=== PATIENT | male | born 1940 | race Caucasian/White ===

== ENCOUNTER 2017-10-09 16:13 | Inpatient (IN) ==
[2017-10-09] MEDS ORDERED: Acetaminophen 325 MG TABLET PO PRN (17:16)
[2017-10-09] MEDS ORDERED: Ibuprofen 600 MG TABLET PO PRN (17:16)
[2017-10-09] MEDS: *HR* OxyCODONE Immed Rel 5 MG TABLET PO PRN (22:58)
[2017-10-10] MEDS: *HR* OxyCODONE Immed Rel 5 MG TABLET PO PRN ×2 (06:01→15:18)
[2017-10-10 07:05] LABS: Basophils # 0.1 K/mcL (0.0-0.2); Basophils % 0.7 %; Eosinophils # 0.3 K/mcL (0.0-0.6); Eosinophils % 3.1 %; Hematocrit 47.3 % (37.5-50.1); Hemoglobin 16.5 g/dL (12.9-16.9); Immature Granulocytes % 0.5 % (0-4); Lymphocytes # 1.9 K/mcL (0.6-4.6); Mean Corpuscular HGB Conc 34.9 g/dL (31.6-35.5); Mean Corpuscular Hemoglobin 31.1 pg (28.0-33.3); Mean Corpuscular Volume 89.1 fL (83.0-100.0); Mean Platelet Volume 10.6 fL (9.4-12.4); Neutrophils # 5.8 K/mcL (1.6-8.9); Platelet Count 219 K/mcL (140-400); Red Blood Count 5.31 M/mcL (4.19-5.50); Red Cell Distribution Width 12.8 % (11.5-14.5); Segmented Neutrophils % 63.7 %
[2017-10-10 07:29] LABS: INR 1.1; Prothrombin Time 11.9 Seconds (9.4-12.1)
[2017-10-10 07:32] LABS: Activated Partial Thrombo Time 31.3 Seconds (26.0-36.0)
[2017-10-10 07:34] LABS: BUN/Creatinine Ratio 21 (6-26); Blood Urea Nitrogen 25 mg/dL (8-23); Calcium 9.3 mg/dL (8.6-10.3); Carbon Dioxide 26 mEq/L (23-29); Chloride 101 mEq/L (98-107); Glucose 167 mg/dL (70-105); Osmolality,Calculated 288 (280-300); Potassium 3.7 mEq/L (3.5-5.1); Sodium 135 mEq/L (136-145); eGFR For African Americans > 60 (> 60); eGFR For Non-African Americans 60 (> 60)
[2017-10-10] MEDS: Aspirin Enteric Coated 81 MG Tablet PO SCH (08:03)
--- NOTE | 2017-10-10 16:22 | Internal Med History&Physical ---
Date of Encounter: 10/10/17 Time of Encounter: 15:50 Assessment and Plan (1) Cervical spinal stenosis Current visit: No Status: Chronic He will have PT and OT evaluations with ongoing intervention. Follow-up with surgeon as directed. Will give scheduled Tylenol and tramadol and prn oxycodone for pain control. (2) CKD (chronic kidney disease) stage 3, GFR 30-59 ml/min Current visit: Yes Status: Chronic Will discontinue ibuprofen and monitor renal indices. (3) Hypertension Current visit: Yes Status: Chronic Inadequately controlled without medication. Will start Cozaar Qualifiers: Hypertension type: essential hypertension Qualified Code(s): I10 - Essential (primary) hypertension Internal Medicine - H&P: HPI Chief complaint: Neck surgery Admitted From: Hospital to Hospital Transfer Plans for Post Hospital Care: Home History of present illness: Mr. Louise is a 77 year old male who underwent C4-7 laminectomy and posterior cervical fusion by Dr. Joseph on 10/06/2017. His postoperative course was unremarkable and he was discharged to [facility] swing bed for rehabilitation therapy prior to returning home. He reports there is still significant pain in his neck but no residual tingling in his arms as had been present preoperatively. He reports a previous neck surgery several years earlier. His orthopedic history is significant otherwise for left TKR and right ulnar nerve transposition. He denies gout. Past Med Surg Social Fam HX - Past Medical History Medical history: cancer, GERD, hypertension Psychiatric history: no psych history - Past Surgical History Surgical History: other - Social History Smoking Status: Former smoker Smokeless Tobacco Status: No Alcohol use: rarely Drug use: none - Family History Mother Hx Family Cancer: Yes Internal Medicine - H&P: Meds Aspirin [Adult Aspirin Regimen] 81 mg PO DAILY 10/06/17 [History] Esomeprazole Magnesium [Nexium] 40 mg PO DAILY 10/06/17 [History] Ibuprofen [Motrin] 600 mg PO TID PRN 10/06/17 [History] Acetaminophen [Tylenol] 650 mg PO Q6HR PRN tablet 10/08/17 [Rx] Cyclobenzaprine [Flexeril] 10 mg PO TID PRN tablet 10/08/17 [Rx] OxyCODONE Immed Rel [Roxicodone 5 MG] 5 mg PO Q6H PRN 7 Days #28 tablet [Rx] 3 Allergy/AdvReac Type Severity Reaction Status Date / Time Sulfa (Sulfonamide Allergy Hives Verified 10/06/17 06:54 Antibiotics) ciprofloxacin AdvReac See Verified 10/06/17 06:54 Comments metronidazole AdvReac See Verified 10/06/17 06:54 Comments Icwtosp-Wbo-Rph Reductase AdvReac See Verified 10/06/17 06:54 Inhibitor Comments [Statins] All Systems PM: A 10-system review of systems was performed and is negative for pertinent findings except as documented above in the HPI. Review of systems: Gen.: He states his weight has been stable the past few months Cardiovascular: He has history of hypertension but denies PA heart failure angina DVT or pulmonary embolus Respiratory: He smoked from age [age]. He denies chronic lung disease and does not use home oxygen GI: He has GERD. He denies disorders of his liver gallbladder or exocrine pancreas : He had prostate cancer diagnosed in 2001. He was treated with brachytherapy and is presumed cancer free. He has chronic kidney disease stage III. Neurologic: He denies large distribution strokes or seizures. He had right ulnar nerve transposition surgery as per history of present illness. Endocrine: Denies diabetes thyroid disease or hyperlipidemia Hematology/oncology: He denies blood disorders cancers or anemia Psychiatric: He denies anxiety depression or other mental health issues - Constitutional Vitals: Temp Pulse Resp BP Pulse Ox 97.8 F 81 22 155/97 93 10/10/17 15:12 10/10/17 15:12 10/10/17 15:12 10/10/17 15:12 10/10/17 15:12 Exam: Gen.: He is a well-developed well-nourished male who appears in no acute distress at present time HEENT: Head is atraumatic and normocephalic. Eyes: EOMI. There is no scleral icterus. Mouth: Mucosa is moist. Neck: His posterior neck has a surgical dressing in place which I did not remove. There is no thyromegaly or adenopathy noted. Heart: Regular without murmurs gallops or ectopics Lungs: No wheezes or crackles are heard. Abdomen: Soft and nontender. No masses or guarding are noted. Extremities: There is no cyanosis edema or clubbing noted. Dorsalis pedis and posttibial pulses are 1-2 over 2 bilaterally. Neurologic: Mental status: He is talkative and a good historian. Cranial nerves : Smile is symmetric. Forehead wrinkles bilaterally. Tongue protrudes midline. EOMI. Motor: There is no pronator drift. Cerebellar: Finger to nose is intact bilaterally. Skin: Warm and dry Internal Med - H&P Results - Labs CBC & Chem 7: 10/10/17 06:05 10/10/17 06:05 Labs: Short CBC 10/10/17 Range/Units 06:05 WBC 9.2 (4.3-11.1) K/mcL Hgb 16.5 (12.9-16.9) g/dL Hct 47.3 (37.5-50.1) % Plt Count 219 (140-400) K/mcL Neutrophils # 5.8 (1.6-8.9) K/mcL BMP 10/10/17 06:05 Sodium 135 L Potassium 3.7 Chloride 101 Carbon Dioxide 26 BUN 25 H Creatinine 1.19 Glucose 167 H Calcium 9.3 - VTE Documentation of Mechanical Device: Graduated compression elastic hosiery
[2017-10-10] MEDS: Acetaminophen 325 MG TABLET PO SCH (19:15)
[2017-10-10] MEDS: traMADol 50 MG TABLET PO SCH (19:15)
[2017-10-11] MEDS: traMADol 50 MG TABLET PO SCH ×4 (00:24→19:51)
[2017-10-11] MEDS: Acetaminophen 325 MG TABLET PO SCH ×4 (00:24→19:51)
[2017-10-11] MEDS: Aspirin Enteric Coated 81 MG Tablet PO SCH (08:19)
[2017-10-11] MEDS: *HR* OxyCODONE Immed Rel 5 MG TABLET PO PRN ×2 (08:23→14:44)
[2017-10-11] MEDS ORDERED: MOM Conc 10 ML UD.LIQ PO SCH (12:00)
--- NOTE | 2017-10-11 14:54 | Internal Med Progress Note ---
Date of Encounter: 10/11/17 Time of Encounter: 14:45 - Assessment and plan (1) Cervical spinal stenosis Current Visit: No Status: Chronic Assessment and plan: October 11. Status post C4-7 laminectomy and posterior cervical fusion. Continue analgesics and therapy. (2) CKD (chronic kidney disease) stage 3, GFR 30-59 ml/min Current Visit: Yes Status: Chronic Assessment and plan: October 11. Remain off ibuprofen and monitor renal indices. (3) Hypertension Current Visit: Yes Status: Chronic Assessment and plan: October 11. His reports he was taking 25 mg atenolol daily from her prescription supply prior to surgery. Will restart atenolol and continue Cozaar. Qualifiers: Hypertension type: essential hypertension Qualified Code(s): I10 - Essential (primary) hypertension - Subjective Interval history: October 11. He is having significant pain at this moment. He states it was less severe earlier in the day. - Constitutional Vitals: Temp Pulse Resp BP Pulse Ox 97.8 F 87 17 141/96 92 10/11/17 05:50 10/11/17 05:50 10/11/17 05:50 10/11/17 05:50 10/11/17 05:50 Exam: He is lying in bed and appears to be in significant pain with when sitting up. He is able to answer questions appropriately. I reviewed his medications and lab results. Internal Medicine: Result - Labs CBC & Chem 7: 10/10/17 06:05 10/10/17 06:05 - ABG Interpretation ABG results: PT/INR, D-dimer PT 11.9 Seconds (9.4-12.1) 10/10/17 06:05 - VTE Documentation of Mechanical Device: Graduated compression elastic hosiery Consult Discharge Plan - Plan Referrals: Shekhar Lemus DO [Primary Care Provider] - 1 week
[2017-10-12] MEDS: traMADol 50 MG TABLET PO SCH ×4 (05:21→17:14)
[2017-10-12] MEDS: Acetaminophen 325 MG TABLET PO SCH ×4 (05:21→17:13)
[2017-10-12] MEDS: *HR* OxyCODONE Immed Rel 5 MG TABLET PO PRN ×2 (05:23→20:38)
[2017-10-12] MEDS: Aspirin Enteric Coated 81 MG Tablet PO SCH (08:48)
[2017-10-13] MEDS: Acetaminophen 325 MG TABLET PO SCH ×4 (00:03→18:29)
[2017-10-13] MEDS: traMADol 50 MG TABLET PO SCH ×4 (00:04→18:30)
[2017-10-13] MEDS: *HR* OxyCODONE Immed Rel 5 MG TABLET PO PRN (08:02)
[2017-10-13] MEDS: Aspirin Enteric Coated 81 MG Tablet PO SCH (08:03)
[2017-10-13] MEDS: MOM Conc 10 ML UD.LIQ PO SCH (09:45)
--- NOTE | 2017-10-13 14:34 | Internal Med Progress Note ---
Date of Encounter: 10/13/17 Time of Encounter: 14:25 - Assessment and plan (1) Cervical spinal stenosis Current Visit: No Status: Chronic Assessment and plan: October 11. Status post C4-7 laminectomy and posterior cervical fusion. Continue analgesics and therapy. (2) CKD (chronic kidney disease) stage 3, GFR 30-59 ml/min Current Visit: Yes Status: Chronic Assessment and plan: October 11. Remain off ibuprofen and monitor renal indices. October 13. Will recheck labs in a.m. (3) Hypertension Current Visit: Yes Status: Chronic Assessment and plan: October 11. His reports he was taking 25 mg atenolol daily from her prescription supply prior to surgery. Will restart atenolol and continue Cozaar. October 13. Continue atenolol and Cozaar Qualifiers: Hypertension type: essential hypertension Qualified Code(s): I10 - Essential (primary) hypertension (4) Lymph node enlargement Current Visit: Yes Status: Acute Assessment and plan: October 13. Will check labs in a.m. and reassess in 1-2 days. - Subjective Interval history: October 11. He is having significant pain at this moment. He states it was less severe earlier in the day. October 13. His pain has minimally lessened. He reports feeling a sore "lump" in his right preauricular area. - Constitutional Vitals: Temp Pulse Resp BP Pulse Ox 98.2 F 71 18 133/92 92 10/12/17 18:40 10/12/17 18:40 10/12/17 18:40 10/12/17 18:40 10/12/17 18:40 Exam: He is resting comfortably in bed and appears in no acute distress. He has slight enlargement of a preauricular node/gland. No other nodules are palpated in the anterior or posterior cervical chain. There is no significant erythema surrounding the borders of the surgical wound dressing. He denies sore throat earache or pain on chewing. Internal Medicine: Result - Labs CBC & Chem 7: 10/10/17 06:05 10/10/17 06:05 - ABG Interpretation ABG results: PT/INR, D-dimer PT 11.9 Seconds (9.4-12.1) 10/10/17 06:05 - VTE Documentation of Mechanical Device: Graduated compression elastic hosiery Consult Discharge Plan - Plan Referrals: Handy-Rolenson,Hiren, DO [Primary Care Provider] - 1 week
[2017-10-14] MEDS: traMADol 50 MG TABLET PO SCH ×4 (04:32→17:02)
[2017-10-14] MEDS: Acetaminophen 325 MG TABLET PO SCH ×4 (04:32→17:02)
[2017-10-14] MEDS: *HR* OxyCODONE Immed Rel 5 MG TABLET PO PRN ×3 (04:34→20:34)
[2017-10-14 06:09] LABS: Basophils # 0.1 K/mcL (0.0-0.2); Basophils % 0.8 %; Eosinophils # 0.4 K/mcL (0.0-0.6); Eosinophils % 4.7 %; Hematocrit 44.1 % (37.5-50.1); Hemoglobin 15.6 g/dL (12.9-16.9); Immature Granulocytes % 1.3 % (0-4); Lymphocytes # 1.9 K/mcL (0.6-4.6); Lymphocytes % 20.7 %; Mean Corpuscular HGB Conc 35.4 g/dL (31.6-35.5); Mean Corpuscular Hemoglobin 31.6 pg (28.0-33.3); Mean Corpuscular Volume 89.3 fL (83.0-100.0); Monocytes # 0.9 K/mcL (0.0-1.3); Monocytes % 9.8 %; Neutrophils # 5.7 K/mcL (1.6-8.9); Platelet Count 237 K/mcL (140-400); Red Blood Count 4.94 M/mcL (4.19-5.50); Red Cell Distribution Width 13.2 % (11.5-14.5); Segmented Neutrophils % 62.7 %
[2017-10-14 06:40] LABS: BUN/Creatinine Ratio 23 (6-26); Blood Urea Nitrogen 27 mg/dL (8-23); Calcium 9.5 mg/dL (8.6-10.3); Carbon Dioxide 29 mEq/L (23-29); Chloride 99 mEq/L (98-107); Glucose 148 mg/dL (70-105); Osmolality,Calculated 286 (280-300); Potassium 4.8 mEq/L (3.5-5.1); Sodium 134 mEq/L (136-145); eGFR For African Americans > 60 (> 60); eGFR For Non-African Americans 59 (> 60)
[2017-10-14] MEDS: Aspirin Enteric Coated 81 MG Tablet PO SCH (09:07)
[2017-10-15] MEDS: traMADol 50 MG TABLET PO SCH ×4 (01:01→18:12)
[2017-10-15] MEDS: Acetaminophen 325 MG TABLET PO SCH ×4 (01:01→18:12)
[2017-10-15] MEDS: MOM Conc 10 ML UD.LIQ PO SCH (08:38)
[2017-10-15] MEDS: Aspirin Enteric Coated 81 MG Tablet PO SCH (08:39)
--- NOTE | 2017-10-15 12:36 | Internal Med Progress Note ---
Date of Encounter: 10/15/17 Time of Encounter: 12:25 - Assessment and plan (1) Cervical spinal stenosis Current Visit: No Status: Chronic Assessment and plan: October 11. Status post C4-7 laminectomy and posterior cervical fusion. Continue analgesics and therapy. (2) CKD (chronic kidney disease) stage 3, GFR 30-59 ml/min Current Visit: Yes Status: Chronic Assessment and plan: October 11. Remain off ibuprofen and monitor renal indices. October 13. Will recheck labs in a.m. (3) Hypertension Current Visit: Yes Status: Chronic Assessment and plan: October 11. His reports he was taking 25 mg atenolol daily from her prescription supply prior to surgery. Will restart atenolol and continue Cozaar. October 13. Continue atenolol and Cozaar Qualifiers: Hypertension type: essential hypertension Qualified Code(s): I10 - Essential (primary) hypertension (4) Lymph node enlargement Current Visit: Yes Status: Acute Assessment and plan: October 13. Will check labs in a.m. and reassess in 1-2 days. October 15. WBC and differential remain normal. We will continue to observe. - Subjective Interval history: October 11. He is having significant pain at this moment. He states it was less severe earlier in the day. October 13. His pain has minimally lessened. He reports feeling a sore "lump" in his right preauricular area. October 15. His right preauricular soreness is unchanged. His neck pain has continued to lessen. - Constitutional Vitals: Temp Pulse Resp BP Pulse Ox 97.6 F 66 18 118/72 94 10/15/17 06:42 10/15/17 06:42 10/15/17 06:42 10/15/17 06:42 10/15/17 06:42 Exam: He is resting comfortably in bed. There seems to be less tenderness in palpating the right rear radicular/submandibular area. The left side is nontender. His affect is bright and cheerful he does not appear to be in significant pain. I reviewed his medications. I discussed pertinent lab results with him. Internal Medicine: Result - Labs CBC & Chem 7: 10/14/17 05:43 10/14/17 05:43 - ABG Interpretation ABG results: PT/INR, D-dimer PT 11.9 Seconds (9.4-12.1) 10/10/17 06:05 - VTE Documentation of Mechanical Device: Graduated compression elastic hosiery Consult Discharge Plan - Plan Referrals: Shekhar Lemus DO [Primary Care Provider] - 1 week
[2017-10-16] MEDS: traMADol 50 MG TABLET PO SCH ×5 (05:15→23:14)
[2017-10-16] MEDS: Acetaminophen 325 MG TABLET PO SCH ×5 (05:15→23:14)
[2017-10-16] MEDS: Aspirin Enteric Coated 81 MG Tablet PO SCH (08:42)
[2017-10-16] MEDS ORDERED: Bisacodyl 10 MG RECTAL SUPPOSITORY RC PRN (09:22)
[2017-10-17] MEDS: Acetaminophen 325 MG TABLET PO SCH ×4 (05:35→23:52)
[2017-10-17] MEDS: traMADol 50 MG TABLET PO SCH ×3 (05:35→17:32)
[2017-10-17] MEDS: Aspirin Enteric Coated 81 MG Tablet PO SCH (09:53)
[2017-10-17] MEDS: MOM Conc 10 ML UD.LIQ PO SCH (09:53)
--- NOTE | 2017-10-17 10:58 | Internal Med Progress Note ---
Date of Encounter: 10/17/17 Time of Encounter: 10:50 - Assessment and plan (1) Cervical spinal stenosis Current Visit: No Status: Chronic Assessment and plan: October 11. Status post C4-7 laminectomy and posterior cervical fusion. Continue analgesics and therapy. October 17. Continue present interventions. Anticipate discharge home 2017. (2) CKD (chronic kidney disease) stage 3, GFR 30-59 ml/min Current Visit: Yes Status: Chronic Assessment and plan: October 11. Remain off ibuprofen and monitor renal indices. October 13. Will recheck labs in a.m. October 17. Creatinine minimally changed at 1.20 on 10/14/2017. (3) Hypertension Current Visit: Yes Status: Chronic Assessment and plan: October 11. His reports he was taking 25 mg atenolol daily from her prescription supply prior to surgery. Will restart atenolol and continue Cozaar. October 13. Continue atenolol and Cozaar Qualifiers: Hypertension type: essential hypertension Qualified Code(s): I10 - Essential (primary) hypertension (4) Lymph node enlargement Current Visit: Yes Status: Acute Assessment and plan: October 13. Will check labs in a.m. and reassess in 1-2 days. October 15. WBC and differential remain normal. We will continue to observe. October 17. Improved. Continue to observe. - Subjective Interval history: October 11. He is having significant pain at this moment. He states it was less severe earlier in the day. October 13. His pain has minimally lessened. He reports feeling a sore "lump" in his right preauricular area. October 15. His right preauricular soreness is unchanged. His neck pain has continued to lessen. October 17. He has no new complaints except slight dry mouth. The pain in his neck and preauricular/submandibular area have lessened. - Constitutional Vitals: Temp Pulse Resp BP Pulse Ox 97.4 F L 68 18 133/70 96 10/17/17 07:20 10/17/17 07:20 10/17/17 07:20 10/17/17 07:20 10/17/17 07:20 Exam: He is resting comfortably in bed and appears in no acute distress. His affect is bright and cheerful. I reviewed his medications and lab results. Internal Medicine: Result - Labs CBC & Chem 7: 04/19/18 05:43 10/14/17 05:43 - ABG Interpretation ABG results: PT/INR, D-dimer PT 11.9 Seconds (9.4-12.1) 10/10/17 06:05 - VTE Documentation of Mechanical Device: Graduated compression elastic hosiery Consult Discharge Plan - Plan Referrals: Shekhar Lemus DO [Primary Care Provider] - 1 week
[2017-10-18] MEDS: traMADol 50 MG TABLET PO SCH ×5 (00:35→23:30)
[2017-10-18] MEDS: Acetaminophen 325 MG TABLET PO SCH ×4 (06:26→23:30)
[2017-10-18] MEDS: Aspirin Enteric Coated 81 MG Tablet PO SCH (10:08)
[2017-10-19] MEDS: Acetaminophen 325 MG TABLET PO SCH ×3 (06:27→17:13)
[2017-10-19] MEDS: traMADol 50 MG TABLET PO SCH ×3 (06:28→17:13)
[2017-10-19] MEDS: MOM Conc 10 ML UD.LIQ PO SCH (10:28)
[2017-10-19] MEDS: Aspirin Enteric Coated 81 MG Tablet PO SCH (10:28)
[2017-10-20] MEDS: *HR* OxyCODONE Immed Rel 5 MG TABLET PO PRN ×2 (04:38→09:00)
[2017-10-20] MEDS: Acetaminophen 325 MG TABLET PO SCH ×2 (05:39)
[2017-10-20] MEDS: traMADol 50 MG TABLET PO SCH ×2 (05:40)
[2017-10-20 06:42] VITALS: BP 128/79
[2017-10-20] MEDS: Aspirin Enteric Coated 81 MG Tablet PO SCH (09:01)
--- NOTE | 2017-10-20 10:02 | Discharge Summary ---
Date of Encounter: 10/20/17 Time of Encounter: 09:50 - Discharge Diagnosis (1) Cervical spinal stenosis Priority: Primary Status: Chronic (2) CKD (chronic kidney disease) stage 3, GFR 30-59 ml/min Priority: Secondary Status: Chronic (3) Hypertension Priority: Secondary Status: Chronic Qualifiers: Hypertension type: essential hypertension Qualified Code(s): I10 - Essential (primary) hypertension (4) Lymph node enlargement Priority: Secondary Status: Resolved Hospital course: Mr. Louise is a 77 year old male who underwent C4-7 laminectomy and posterior cervical fusion by Dr. Joseph on 10/06/2017. His postoperative course was unremarkable and he was discharged to [facility] swing bed for rehabilitation therapy prior to returning home. Initial orders were written by the discharging physicians at [facility]. I saw him on October 10 and performed the swing bed history and physical. He had physical therapy and occupational therapy evaluations with ongoing interventions. He had follow-up appointment with his surgeon on October 19 with satisfactory assessment. He was stable for discharge home on October 20. He will follow with his PCP within 1 week and with his surgeon as directed in approximately 10 weeks. - Time Spent with Patient Total time spent providing and/or coordinating discharge services: - Discharge Medications Prescriptions: Atenolol [Tenormin] 25 mg PO DAILY #30 tablet Home Medications: Aspirin [Adult Aspirin Regimen] 81 mg PO DAILY 10/06/17 [History] Esomeprazole Magnesium [Nexium] 40 mg PO DAILY 10/06/17 [History] Acetaminophen [Tylenol] 650 mg PO Q6HR PRN tablet 10/08/17 [Rx] Cyclobenzaprine [Flexeril] 10 mg PO TID PRN tablet 10/08/17 [Rx] OxyCODONE Immed Rel [Roxicodone 5 MG] 5 mg PO Q6H PRN 7 Days #28 tablet [Rx] Atenolol [Tenormin] 25 mg PO DAILY #30 tablet 10/20/17 [Rx] Allergies/Adverse Reactions: 3 Allergy/AdvReac Type Severity Reaction Status Date / Time Sulfa (Sulfonamide Allergy Hives Verified 10/06/17 06:54 Antibiotics) ciprofloxacin AdvReac See Verified 10/06/17 06:54 Comments metronidazole AdvReac See Verified 10/06/17 06:54 Comments [id number]-[id number] Reductase AdvReac See Verified 10/06/17 06:54 Inhibitor Comments [Statins] Date of admission: 10/09/17 17:05 Primary care physician: Shekhar Lemus DO Consults: 10/09/17 17:06 Consult to Occupational Therapy [CONS] Routine Comment: Evaluate, PLan and Implement Plan of Care Reason for Consult: Evaluate, Plan and Implement PLan of Care Does patient have active BEDREST order?: No Is patient medically & hemodynamically stable?: Yes Patient assessed for mobility or mobilized this visit?: Yes Consult to Physical Therapy [CONS] Routine Comment: Evaluate, Plan and Implement Plan of care Reason for Consult: Evaluate, Plan and Implement PLan of Care Does patient have active BEDREST order?: No Is patient medically & hemodynamically stable?: Yes Patient assessed for mobility or mobilized this visit?: Yes Consult to Hairspring Setter [CONS] Routine Reason for SW Consult: Discharge Planning - Constitutional Vitals: Temp Pulse Resp BP Pulse Ox 98.1 F 61 18 128/79 96 10/20/17 06:39 10/20/17 06:39 10/20/17 06:39 10/20/17 06:39 10/20/17 06:39 - Patient Status Disposition: Home Health Service Functional capacity at discharge: uses cane/walker Overall status at discharge: patient is progressing back to baseline - Discharge Instructions Follow Up With: Shekhar Lemus DO [Primary Care Provider] - 1 week - Diet and Activity Activity: as per physical therapy Diet: advance to your usual diet - VTE Documentation of Mechanical Device: Graduated compression elastic hosiery
--- NOTE | 2017-10-20 10:07 | Physician Discharge Referral ---
Home Health/Hosp Referral Info Transfer to: Home Health Attending Provider: Jalen Provider in Charge Post Discharge: PCP - Diagnosis (1) Cervical spinal stenosis Priority: Primary Status: Chronic (2) CKD (chronic kidney disease) stage 3, GFR 30-59 ml/min Priority: Secondary Status: Chronic (3) Hypertension Priority: Secondary Status: Chronic (4) Lymph node enlargement Priority: Secondary Status: Resolved - Respiratory Orders Smoking Cessation: Smoking cessation has been advised. For more information, call the [place] Tobacco Quit Line at 1-809-QZMN-NOW. - Diet/Nutrition Diet/Nutrition Orders: Regular - Activity Activity Orders: Walker - Services Needed Following services are medically necessary services: Nursing, Home Health Aide, Physical Therapy, Occupational Therapy - Transfer Medications Prescriptions: Atenolol [Tenormin] 25 mg PO DAILY #30 tablet Home Medications: Aspirin [Adult Aspirin Regimen] 81 mg PO DAILY 10/06/17 [History] Esomeprazole Magnesium [Nexium] 40 mg PO DAILY 10/06/17 [History] Acetaminophen [Tylenol] 650 mg PO Q6HR PRN tablet 10/08/17 [Rx] Cyclobenzaprine [Flexeril] 10 mg PO TID PRN tablet 10/08/17 [Rx] OxyCODONE Immed Rel [Roxicodone 5 MG] 5 mg PO Q6H PRN 7 Days #28 tablet [Rx] Atenolol [Tenormin] 25 mg PO DAILY #30 tablet 10/20/17 [Rx] Allergies/Adverse Reactions: 3 Allergy/AdvReac Type Severity Reaction Status Date / Time Sulfa (Sulfonamide Allergy Hives Verified 10/06/17 06:54 Antibiotics) ciprofloxacin AdvReac See Verified 10/06/17 06:54 Comments metronidazole AdvReac See Verified 10/06/17 06:54 Comments Tylrxct-Hwi-Zws Reductase AdvReac See Verified 10/06/17 06:54 Inhibitor Comments [Statins] Certification: Further, I certify that my clinical findings support that this patient is homebound (i.e. absences from home require considerable and taxing effort and are for medical reasons or protestant services or infrequently or short duration when for other reasons) because: Homebound Reason: Leaving home requires considerable and taxing effort due to condition (Walker ambulation, cervical spine surgery.) Attestation: My signature below is to certify that this patient is under my care and that I, or nurse practitioner, or a physician's registered dental assistant working with me, has a face-to -face encounter with this patient.
== END 2017-10-20 11:04 | disposition home health service (06) | DRG 561 ==
LOC: INPPIK 17:05
PROVIDERS: ADMIT Internal Medicine; ATTEND Internal Medicine